=== PATIENT | male | born 1925 | race Caucasian/White ===

== ENCOUNTER 2016-12-17 02:56 | Inpatient (IN) | payer OTHER, MEDICARE ==
[~2016-12-17] VITALS: Ht 167.6 cm; Wt 69.4 kg
[2016-12-17] VITALS (18 sets, daily range): BP systolic 83–124; BP diastolic 56–91
[2016-12-17 03:34] LABS: EOSINOPHIL (%) 0.1 % (0-5); HEMATOCRIT 37.4 % (38.0-50.0); IMMATURE GRANULOCYTE (%) 0.6 % (0.0-0.7); IMMATURE GRANULOCYTE COUNT 0.1 K/uL; INSTRUMENT ABS NEUTROPHIL CT 12.8 K/uL; LYMPHOCYTE COUNT 1.2 K/uL (1.0-2.8); MCH 30.5 PG (29.0-34.0); MCHC 33.2 G/DL (30.0-36.0); MCV 91.9 FL (86-99); MEAN PLAT.VOLUME 11.2 uM^3 (9.0-12.4); MONOCYTE (%) 7.5 % (3-12); MONOCYTE COUNT 1.2 K/uL (0-0.8); NEUTROPHIL (%) 84.1 % (45-76); NEUTROPHIL COUNT 12.8 K/uL (1.8-6.4); PLATELET COUNT 269 K/uL (156-360); RBC DIS.WIDTH-CV 13.8 % (11.8-14.6); RBC DIS.WIDTH-SD 46.3 % (39-53); RED BLOOD COUNT 4.07 M/uL (4.00-5.50); WHITE BLOOD COUNT 15.3 K/uL (4.1-10.2)
[2016-12-17 03:43] LABS: CHLORIDE 110 mEq/L (99-109); POTASSIUM 4.3 mEq/L (3.7-5.4); SODIUM 140 mEq/L (136-147)
[2016-12-17 03:44] LABS: GLUCOSE 183 mg/dL (70-99)
[2016-12-17 03:46] LABS: ANION GAP 14 MEQ/L (2-14)
[2016-12-17 03:48] LABS: GFR ESTIMATE (CALCULATED) 38 mL/min/
[2016-12-17 03:49] LABS: UREA NITROGEN (BUN) 26 mg/dL (9-23)
[2016-12-17 03:55] LABS: TROP-I INTERPRETATION NEGATIVE; TROPONIN-I 0.09 ng/mL (0.0-0.30)
[2016-12-17 06:40] LABS: INTER. NORMALIZED RATIO 1.1; PROTHROMBIN TIME 10.7 (9.2-11.2); PTT 30.4 (25-32)
[2016-12-17 07:47] LABS: Estimated Average Glucose 128 mg/dL (70-123); HEMOGLOBIN A1c (GLYCOHEMOGLOB) 6.1 % HGB (Below 5.7)
[2016-12-17 09:52] LABS: TROP-I INTERPRETATION INDETERMINATE; TROPONIN-I 0.48 ng/mL (0.0-0.30)
[2016-12-17 10:28] LABS: HEMOGLOBIN 11.9 (12.5-16.6); PCO2 27 mm Hg (35-45); PO2 65 mm Hg (80-100); pH 7.46 (7.35-7.45)
[2016-12-17 10:29] LABS: BASE EXCESS -3.4 mEq/L (-3 to +3); BICARBONATE 19.2 mEq/L (22-26); CARBOXY HGB 1.7 % (0-5); COMMENTS - BLOOD GASES A+C+; DEVICE NC; METHEMOGLOBIN 1.1 % (0-1.5); O2 FLOW 5 L/MIN; SITE RR; TOTAL RESP RATE 26 resp/min
[2016-12-17 12:51] LABS: POINT-OF-CARE METER ID UU14174216
[2016-12-17] MEDS ORDERED: CILOSTAZOL100 MG PO (13:05)
[2016-12-17] MEDS ORDERED: NORVASC5 MG PO (13:06)
[2016-12-17] MEDS ORDERED: ATORVASTATIN CA40 MG PO (13:06)
[2016-12-17] MEDS ORDERED: PHENYTOIN SODI100 M1 PO (13:06)
[2016-12-17] MEDS ORDERED: ASPIR-LOW81 MG PO (13:06)
[2016-12-17] MEDS ORDERED: VITAMIN B-6100 MG PO (13:07)
[2016-12-17 14:11] LABS: D-DIMER ELISA 0.47 mg/L FEU (< 0.57); PROTHROMBIN TIME 10.6 (9.2-11.2); PTT 31.7 (25-32)
[2016-12-17 14:46] LABS: TROPONIN-I 0.69 ng/mL (0.0-0.30)
[2016-12-17 14:47] LABS: TROP-I INTERPRETATION POSITIVE
[2016-12-17 15:03] LABS: ADD MIUA? YES; BILIRUBIN NEGATIVE; BLOOD NEGATIVE; COLOR YELLOW ((YELLOW)); GLUCOSE (STRIP) NEGATIVE; KETONES NEGATIVE; LEUKOCYTES NEGATIVE; NITRITE NEGATIVE; PROTEIN (STRIP) 30; SPECIFIC GRAVITY 1.018 (1.000-1.030); UROBILINOGEN 0.2 MG/DL (0.2-1.0)
[2016-12-17 15:18] LABS: BACTERIA RARE /HPF; EPITHELIAL CELLS NONE SEEN /HPF; MUCUS TRACE /LPF; RED BLOOD CELLS 0-5 /HPF (0-5); UCUL ADDED? NO; WHITE BLOOD CELLS 0-5 /HPF (0-5)
[2016-12-17 16:50] LABS: POINT-OF-CARE METER ID UU14174216; POINT-OF-CARE USER ID ENVKC36
[2016-12-17 20:23] LABS: TROP-I INTERPRETATION INDETERMINATE; TROPONIN-I 0.57 ng/mL (0.0-0.30)
[2016-12-17 20:43] LABS: INFLUENZA A VIRAL ANTIGEN NEGATIVE; INFLUENZA B VIRAL ANTIGEN NEGATIVE
[2016-12-17 21:46] LABS: POINT-OF-CARE METER ID UU14174216
[2016-12-18] VITALS (10 sets, daily range): BP systolic 96–107; BP diastolic 40–68
[2016-12-18 06:05] LABS: EOSINOPHIL (%) 0 % (0-5); HEMATOCRIT 37.5 % (38.0-50.0); IMMATURE GRANULOCYTE (%) 0.7 % (0.0-0.7); IMMATURE GRANULOCYTE COUNT 0.1 K/uL; INSTRUMENT ABS NEUTROPHIL CT 10.6 K/uL; LYMPHOCYTE COUNT 0.9 K/uL (1.0-2.8); MCH 31.2 PG (29.0-34.0); MCHC 33.1 G/DL (30.0-36.0); MCV 94.2 FL (86-99); MEAN PLAT.VOLUME 11.6 uM^3 (9.0-12.4); MONOCYTE (%) 4.4 % (3-12); MONOCYTE COUNT 0.5 K/uL (0-0.8); NEUTROPHIL (%) 87.1 % (45-76); NEUTROPHIL COUNT 10.6 K/uL (1.8-6.4); NRBC (%) 0.2 /100 WBC (0-0); PLATELET COUNT 226 K/uL (156-360); RBC DIS.WIDTH-CV 14.1 % (11.8-14.6); RBC DIS.WIDTH-SD 47.8 % (39-53); RED BLOOD COUNT 3.98 M/uL (4.00-5.50); WHITE BLOOD COUNT 12.2 K/uL (4.1-10.2)
[2016-12-18 08:27] LABS: POINT-OF-CARE METER ID UU13113781
[2016-12-18 09:45] LABS: CHLORIDE 107 mEq/L (99-109); SODIUM 138 mEq/L (136-147)
[2016-12-18 09:47] LABS: GLUCOSE 182 mg/dL (70-99)
[2016-12-18 09:48] LABS: ANION GAP 16 MEQ/L (2-14)
[2016-12-18 09:55] LABS: GFR ESTIMATE (CALCULATED) 24 mL/min/; POTASSIUM 5.4 mEq/L (3.7-5.4); UREA NITROGEN (BUN) 44 mg/dL (9-23)
[2016-12-18 09:58] LABS: TROP-I INTERPRETATION INDETERMINATE; TROPONIN-I 0.52 ng/mL (0.0-0.30)
[2016-12-18 11:23] LABS: BASE EXCESS -18.5 mEq/L (-3 to +3); CARBOXY HGB 1.3 % (0-5); METHEMOGLOBIN 1.2 % (0-1.5)
[2016-12-18 11:25] LABS: BICARBONATE 10.8 mEq/L (22-26); COMMENTS - BLOOD GASES +C; DEVICE PB840; FI02 100 %; MECHANICAL RATE 14 resp/min; MODE AC; PCO2 39 mm Hg (35-45); PO2 170 mm Hg (80-100); SITE A-LINE; pH 7.05 (7.35-7.45)
[2016-12-18 11:26] LABS: PEEP 10 CM/H20; TIDAL VOLUME 500 ML; TOTAL RESP RATE 14 resp/min
[2016-12-18 12:18] LABS: BICARBONATE 10.4 mEq/L (22-26); CARBOXY HGB 1.7 % (0-5); METHEMOGLOBIN 1.6 % (0-1.5)
[2016-12-18 12:19] LABS: COMMENTS - BLOOD GASES +C; DEVICE PB840; FI02 100 %; MECHANICAL RATE 20 resp/min; MODE AC; PCO2 26 mm Hg (35-45); PO2 73 mm Hg (80-100); SITE A-LINE; pH 7.21 (7.35-7.45)
[2016-12-18 12:20] LABS: PEEP 5 CM/H20; TIDAL VOLUME 500 ML; TOTAL RESP RATE 20 resp/min
[2016-12-18 14:12] LABS: HEMATOCRIT 30.8 % (38.0-50.0); MCH 32.1 PG (29.0-34.0); MCHC 33.8 G/DL (30.0-36.0); MCV 95.1 FL (86-99); MEAN PLAT.VOLUME 11.7 uM^3 (9.0-12.4); NRBC (%) 0.4 /100 WBC (0-0); PLATELET COUNT 232 K/uL (156-360); RBC DIS.WIDTH-CV 14.3 % (11.8-14.6); RED BLOOD COUNT 3.24 M/uL (4.00-5.50)
[2016-12-18 14:22] LABS: INTER. NORMALIZED RATIO 1.4; PROTHROMBIN TIME 14.1 (9.2-11.2); PTT 29.9 (25-32)
[2016-12-18 14:30] LABS: TROP-I INTERPRETATION POSITIVE; TROPONIN-I 0.83 ng/mL (0.0-0.30)
[2016-12-18 14:34] LABS: ALKALINE PHOSPHATASE 120 IU/L (3-129); ANION GAP 24 MEQ/L (2-14); CHLORIDE 104 MEQ/L (99-109); DIRECT BILIRUBIN 1.1 mg/dL (0.0-0.3); GFR ESTIMATE (CALCULATED) 23 mL/min/; GLUCOSE 231 mg/dL (70-99); MAGNESIUM 2.2 mg/dl (1.3-2.7); POTASSIUM 5.3 MEQ/L (3.7-5.4); SAMPLE HEMOLYSIS CHECK 0; SAMPLE ICTERIC CHECK 0; SAMPLE LIPEMIA CHECK 0; SODIUM 139 MEQ/L (136-147); TOTAL BILIRUBIN 1.4 MG/DL (0.0-1.0); UREA NITROGEN (BUN) 46 mg/dL (9-23)
[2016-12-18 14:46] LABS: METH RESISTANT S AUREUS PCR NEGATIVE (NEGATIVE)
[2016-12-18 14:47] LABS: PROBE CHECK PASS; SPECIMEN PROCESSING CONTROL PASS
== END 2016-12-18 16:46 | disposition short-term general hospital (02) | DRG 252 ==
LOC: EME 02:56 → EDOF 04:43 → 4EAST 04:43 → 4WEST 12-18 12:46
PROVIDERS: Emergency Medicine; Hospitalist; Internal Medicine Cardiovascular Disease; Internal Medicine Critical Care Medicine; Internal Medicine Pulmonary Disease
DX: I21.4 Non-ST elevation (NSTEMI) myocardial infarction (principal); I25.10 Atherosclerotic heart disease of native coronary artery without angina pectoris; I25.84 Coronary atherosclerosis due to calcified coronary lesion; I35.2 Nonrheumatic aortic (valve) stenosis with insufficiency; R57.0 Cardiogenic shock; J96.01 Acute respiratory failure with hypoxia; J44.0 Chronic obstructive pulmonary disease with (acute) lower respiratory infection; J18.9 Pneumonia, unspecified organism; J44.1 Chronic obstructive pulmonary disease with (acute) exacerbation; I48.91 Unspecified atrial fibrillation; I42.9 Cardiomyopathy, unspecified; I13.0 Hypertensive heart and chronic kidney disease with heart failure and stage 1 through stage 4 chronic kidney disease, or unspecified chronic kidney disease; I50.23 Acute on chronic systolic (congestive) heart failure; N18.3 Chronic kidney disease, stage 3 (moderate); E11.22 Type 2 diabetes mellitus with diabetic chronic kidney disease; E11.65 Type 2 diabetes mellitus with hyperglycemia; I73.9 Peripheral vascular disease, unspecified; E78.5 Hyperlipidemia, unspecified; G40.909 Epilepsy, unspecified, not intractable, without status epilepticus; R04.2 Hemoptysis; Z87.891 Personal history of nicotine dependence
CPT/HCPCS: 36600; 71010; 71250; 80048; 80048 91; 80053; 81003; 82248; 82803; 82948; 83036; 83605; 83735; 83880; 84100; 84443; 84484; 85025; 85027; 85379; 85610; 85730; 87040; 87070; 87205; 87449; 87502; 87641; 92950; 93005; 93306; 94002; 94640; 94640 76; 94667; 94799; 99202; 99281; 99285; C1769; C1887; C1894; C1898; J0456; J0461; J0696; J1200; J1265; J1644; J1815; J1940; J1956; J2250; J2405; J2704; J2930; J3010; J7030; J7050